=== PATIENT | female | born 1985 | race Caucasian/White ===

== ENCOUNTER 2022-02-15 05:09 | Emergency (ER) | payer MEDICAID ==
[~2022-02-15] VITALS: Ht 170.2 cm; Wt 76.2 kg
--- NOTE | 2022-02-15 05:36 | NUR ---
PT LIES ON THE FLOOR DESPITE BEING TOLD MULTIPLE TIMES THAT SHE CAN BE RUN OVER BY WHEELCHAIRS. PT AMBULATES WITH ERECT AND COORDINATED GAIT WHEN SHE WANTS TO MOVE FROM ONE AREA TO ANOTHER IN THE WAITING LOBBY. SECURITY NON EMERGENT ON STANDBY.
[2022-02-15 06:29] LABS: BASOPHILS # (AUTO) 0.1 X10'3 (0-0.2); BASOPHILS % (AUTO) 0.5 % (0-1); EOSINOPHILS # (AUTO) 0.1 X10'3 (0-0.9); EOSINOPHILS % (AUTO) 0.7 % (0-6); HEMATOCRIT 43.3 % (35.0-45.0); HEMOGLOBIN 14.5 g/dl (12.0-16.0); LYMPHOCYTES # (AUTO) 1.6 X10'3 (1.1-4.8); LYMPHOCYTES % (AUTO) 15.3 % (21-51); MEAN CORPUSCULAR HEMOGLOBIN 29.8 PG (27.0-31.0); MEAN CORPUSCULAR HGB CONC 33.6 g/dL (33.0-36.5); MEAN CORPUSCULAR VOLUME 88.9 FL (78-98); MEAN PLATELET VOLUME 10.3 FL (7.4-10.4); MONOCYTES # (AUTO) 0.8 X10'3 (0-0.9); MONOCYTES % (AUTO) 7.3 % (2-12); NEUTROPHILS # (AUTO) 8.1 X10'3 (1.8-7.7); NEUTROPHILS % (AUTO) 76.2 % (42-75); PLATELET COUNT 227 X10'3 (140-440); RED BLOOD COUNT 4.87 X10'6 (4.20-5.60); WHITE BLOOD COUNT 10.6 X10'3 (4.5-11.0)
[2022-02-15 06:43] LABS: ALANINE AMINOTRANSFERASE 31 U/L (12-78); ALBUMIN 4.5 G/DL (3.4-5.0); ALBUMIN/GLOBULIN RATIO 1.5 (1.1-1.5); ALKALINE PHOSPHATASE 53 IU/L (46-116); ANION GAP 13 (8-16); ASPARTATE AMINO TRANSFERASE 26 U/L (10-37); BILIRUBIN,TOTAL 0.3 MG/DL (0.1-1.0); BLOOD UREA NITROGEN 11 MG/DL (7-18); BUN/CREATININE RATIO 12.2 (6.6-38.0); CHLORIDE 110 MMOL/L (99-107); GLUCOSE 127 MG/DL (70-104); LIPASE 209 U/L (73-393); POTASSIUM 3.9 MMOL/L (3.5-5.1); SODIUM 144 MMOL/L (135-145); TOTAL CARBON DIOXIDE 21.5 MMOL/L (24-32); TOTAL PROTEIN 7.6 G/DL (6.4-8.2); eGFR 71 ML/MIN
--- NOTE | 2022-02-15 08:25 | NUR ---
FIRST CONTACT WITH PT. FOUND LAYING PRONE, REPORTS MIGRAINE. STATES SHE THINKS SHE 'DRANK TOO MUCH RUM' DOES NOT KNOW EXACT AMOUNT, STATES 'A FEW SHOTS'. PT WAS ON TRAIN FROM [place] TO [facility], BUT GOT OFF IN [place], UNKNOWN WHY. PT REPORTS SHE CAN NOW PROVIDE URINE, AMBULATED WITH STEADY GAIT TO RESTROOM. NO DISTRESS.
[2022-02-15 08:42] LABS: CLARITY,URINE CLOUDY (Clear); COLOR,URINE YELLOW (Yellow); GLUCOSE, URINE NEGATIVE (Neg); KETONES,URINE TRACE mg/dl (Neg); LEUKOCYTE ESTERASE ,URINE NEGATIVE (Neg); NITRITES, URINE NEGATIVE (Neg); OCCULT BLOOD,URINE LARGE (Neg); PROTEIN,URINE TRACE mg/dl (Neg); UROBILINOGEN,URINE 0.2 E.U/dL (0.2-1.0)
[2022-02-15 08:45] LABS: UA COLLECTION TYPE CLN CATCH MIDSTREAM
[2022-02-15 08:49] LABS: MUCUS STRANDS MODERATE /LPF (Neg); SQUAMOUS EPITHELIAL CELL,UR MANY /LPF (FEW)
[2022-02-15 08:51] LABS: BACTERIA,URINE 1+ /HPF (Neg); RBC,URINE 0-2 /HPF (0-2); URINE HCG NEGATIVE (NEG); WBC,URINE 0-4 /HPF (0-4)
[2022-02-15] MEDS ORDERED: ringers solution, lacted 1,000 ML IV ONE ×4 (09:55→10:05)
[2022-02-15] MEDS ORDERED: haloperidol lactate 5mg/ml inj IM ONE ×2 (09:55→10:05)
[2022-02-15] MEDS ORDERED: MAGNESIUM SULFATE/D5W 1 GM/100 ML PIGGYBACK IV ONE ×3 (09:55→10:05)
[2022-02-15] MEDS ORDERED: magnesium 2GM in 50ml NS 50 ML IV ONE (10:10)
[2022-02-15 11:42] VITALS: BP 116/74
[2022-02-15] MEDS ORDERED: METO-292 PO (11:46)
== END 2022-02-15 11:57 | disposition home or self-care (01) ==
LOC: ER 05:10
DX: R11.15 Cyclical vomiting syndrome unrelated to migraine (principal); R11.2 Nausea with vomiting, unspecified; E86.0 Dehydration; F17.200 Nicotine dependence, unspecified, uncomplicated; Z88.1 Allergy status to other antibiotic agents
CPT/HCPCS: 36415; 80053; 81001; 81025; 83690; 85025; 96365; 96372; 99284; J1630; J3475; J7120